=== PATIENT | male | born 1950 | race Two or more races ===

== ENCOUNTER 2022-01-25 14:16 | Emergency (ER) | payer OTHER ==
[~2022-01-25] VITALS: Ht 175.3 cm; Wt 73.5 kg
== END 2022-01-25 17:52 | disposition home or self-care (01) ==
LOC: ER 14:16
DX: H11.31 Conjunctival hemorrhage, right eye (principal); I10 Essential (primary) hypertension; Z85.46 Personal history of malignant neoplasm of prostate